=== PATIENT | female | born 2000 | race Caucasian/White ===

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

== ENCOUNTER 2018-04-27 12:41 | Emergency (ER) | payer BC ==
[~2018-04-27] VITALS: Ht 160 cm; Wt 65.0 kg
[~2018-04-27 12:41] MED LIST changes: +CARAFATE 1GM1 G PO; +NORCO 325 MG-51 TAB PO; +PROTONIX 40MG T40 MG PO; +ZOFRAN ODT4 MG PO
[2018-04-27 12:50] VITALS: BP 122/67
[2018-04-27] MEDS ORDERED: AMOXICILLIN 50500 MG PO (13:50)
[2018-04-27 14:33] VITALS: PULSE 106; TEMP 99.7
== END 2018-04-27 14:35 | disposition home or self-care (01) ==
LOC: COL.ER 12:41
DX: T36.0X5A Adverse effect of penicillins, initial encounter (principal); K58.9 Irritable bowel syndrome, unspecified; Z90.49 Acquired absence of other specified parts of digestive tract; Z87.09 Personal history of other diseases of the respiratory system

== ENCOUNTER 2019-03-25 14:47 | Emergency (ER) | payer BC ==
[~2019-03-25] VITALS: Ht 160 cm; Wt 68.2 kg
[~2019-03-25 14:47] MED LIST changes: +AMOXICILLIN 50500 MG PO
[2019-03-25 14:59] VITALS: BP 120/69; TEMP 98.6
[2019-03-25 15:11] LABS: COLLECTION METHOD CLEAN CATCH
[2019-03-25 15:16] LABS: MUCOUS Present /lpf; PH 6 (5-8); SQUAMOUS EPITHELIAL 0-2 /hpf; URINE APPEARANCE Clear; URINE BACTERIA None Seen /hpf; URINE BILIRUBIN Negative (NEGATIVE); URINE BLOOD Negative (NEGATIVE); URINE COLOR Yellow; URINE GLUCOSE Negative (NEGATIVE); URINE KETONE 1+ (NEGATIVE); URINE LEUKOCYTE ESTERASE Negative (NEGATIVE); URINE NITRATE Negative (NEGATIVE); URINE PROTEIN(semi-quant) Negative (NEGATIVE); URINE RBC 0-2 /hpf; URINE UROBILINOGEN Negative (NEGATIVE)
[2019-03-25 17:07] LABS: BASO % 0.3 % (0.0-2.0); EOS # 0.3 (0.0-0.7); EOS % 4.3 % (0-4.0); GRAN # 4.6 (1.4-6.5); GRAN % 63.2 % (42.2-75.2); HEMOGLOBIN 11.7 g/dl (12.5-16.0); LYMPH # 1.9 (1.2-3.4); LYMPH % 26.5 % (20.0-51.0); MEAN CELL VOLUME 83 fl (80.0-100.0); MEAN CORPUSCULAR HEMOGLOBIN 27 pg (27.0-31.0); MEAN CORPUSCULAR HGB CONC 32 g/dl (33.0-37.0); MEAN PLATELET VOLUME 8.9 fl (7.4-10.4); MONO # 0.4 (0.1-0.6); MONO % 5.4 % (1.7-9.3); PLATELET COUNT 399 K/mm3 (130-400); RED BLOOD COUNT 4.38 M/mm3 (4.10-5.30); REDCELL DISTRIBUTION WIDTH-CV 12.8 % (11.5-14.5)
[2019-03-25 17:08] LABS: HEMATOCRIT 36.3 % (37.0-47.0)
[2019-03-25 17:11] LABS: ALBUMIN 4.8 gm/dL (3.5-5.0); BILIRUBIN,TOTAL 0.5 mg/dL (0.0-1.0); C-REACTIVE PROTEIN 0.7 mg/dL (0.0-0.9); CALCIUM 9.4 mg/dL (8.4-10.2); CREATININE, serum 0.66 (0.52-1.25); POTASSIUM 3.8 mmol/L (3.4-5.0); TOTAL PROTEIN 8.2 gm/dL (6.4-8.2)
[2019-03-25] MEDS ORDERED: ZOFRAN ODT4 MG PO (17:30)
[2019-03-25 17:40] VITALS: PULSE 68
== END 2019-03-25 17:45 | disposition home or self-care (01) ==
LOC: COL.ER 14:47
PROVIDERS: Family Medicine; Physician Assistant
DX: R11.0 Nausea (principal); Z90.89 Acquired absence of other organs